=== PATIENT | male | born 1990 | race Caucasian/White ===

== ENCOUNTER 2021-04-06 11:21 | Emergency (ER) | payer OTHER ==
[2021-04-06 12:10] LABS: BASO % 0.2 % (0.0-1.0); EOS # 0.1 10*3/uL (0.0-0.4); EOS % 0.6 % (1.0-4.0); HEMATOCRIT 45.4 % (42.0-52.0); LYMPH # 1.9 10*3/uL (1.3-4.4); LYMPH % 15.6 % (27.0-41.0); MEAN CELL VOLUME 84.7 fl (80.0-94.0); MEAN CORPUSCULAR HGB 28.5 pg (27.0-31.0); MEAN CORPUSCULAR HGB CONC 33.7 g/dl (33.0-37.0); MEAN PLATELET VOLUME 9.2 fl (9.6-12.3); MONO % 7.9 % (3.0-9.0); NEUT # 9.3 10*3/uL (2.3-7.9); NEUT % 75.3 % (47.0-73.0); PLATELET COUNT AUTOMATED 290 10*3/uL (130-400); RED BLOOD COUNT 5.36 10*6/uL (4.50-5.90); WHITE BLOOD COUNT 12.3 10*3/uL (4.8-10.8)
[2021-04-06 12:26] LABS: ALBUMIN 3.9 gm/dl (3.1-4.5); ALKALINE PHOSPHATASE 83 U/L (45-117); BUN 12 mg/dl (7-24); CHLORIDE 108 mmol/L (98-107); CREATININE 0.93 mg/dL (0.70-1.30); LIPASE 85 U/L (73-393); POTASSIUM 3.6 mmol/L (3.5-5.1); SGOT/AST 15 IU/L (3-35); SGPT/ALT 29 U/L (12-78); SODIUM 138 mmol/L (136-145); TOTAL PROTEIN 8.1 gm/dL (6.4-8.2)
[2021-04-06 14:18] LABS: BILIRUBIN Negative (Negative); BLOOD Negative (Negative); CLARITY Clear (Clear); COLOR Yellow (Yellow); GLUCOSE Negative (Negative); KETONE Negative (Negative); LEUKO ESTERASE Negative (Negative); NITRITE Negative (Negative); SPECIFIC GRAVITY 1.015 (1.001-1.030); UROBILINOGEN 0.2 E.U./dl (0.0-1.0)
[2021-04-06 14:19] LABS: PH 8.5 (4.5-8.0)
[2021-04-06 14:31] LABS: URINE AMPHETAMINES < 1000 (1000ng/ml); URINE BARBITURATES < 200 (200ng/ml); URINE BENZODIAZEPINES < 200 (200ng/ml); URINE CANNABINOIDS (THC) > 50 (50ng/ml); URINE COCAINE < 300 (300ng/ml); URINE METHADONE < 300 (300ng/ml); URINE OPIATES < 300 (300ng/ml)
[2021-04-06 14:36] LABS: BACTERIA 1+
[2021-04-06 14:37] LABS: URINE PHENCYCLIDINE < 25 (25ng/ml)
== END 2021-04-06 14:44 | disposition home or self-care (01) ==
LOC: ED 11:21
PROVIDERS: Emergency Medicine
DX: R10.33 Periumbilical pain (principal); Z20.822 Contact with and (suspected) exposure to COVID-19; R11.2 Nausea with vomiting, unspecified; R10.13 Epigastric pain

== ENCOUNTER → 2021-05-16 | Outpatient (CLI) | payer OTHER | END | disposition home or self-care (01) | LOC: COVID19 16:45 | PROVIDERS: ATTEND Podiatrist Foot & Ankle Surgery | DX: U07.1 COVID-19 (principal) ==

== ENCOUNTER → 2021-05-28 | Outpatient (CLI) | payer OTHER | END | disposition home or self-care (01) | LOC: ORTHO 03:39 | PROVIDERS: ATTEND Orthopaedic Surgery | DX: M25.562 Pain in left knee (principal) ==

== ENCOUNTER → 2021-12-03 | Outpatient (CLI) | payer OTHER ==
[2021-12-03 09:28] LABS: BASO # 0.1 10*3/uL (0.0-0.1); BASO % 0.6 % (0.0-1.0); EOS # 0.1 10*3/uL (0.0-0.4); EOS % 1.4 % (1.0-4.0); HEMATOCRIT 45.8 % (42.0-52.0); LYMPH # 2.3 10*3/uL (1.3-4.4); LYMPH % 29.3 % (27.0-41.0); MEAN CELL VOLUME 87.2 fl (80.0-94.0); MEAN CORPUSCULAR HGB CONC 33.2 g/dl (33.0-37.0); MEAN PLATELET VOLUME 9.1 fl (9.6-12.3); MONO # 0.8 10*3/uL (0.1-1.0); MONO % 9.4 % (3.0-9.0); NEUT # 4.7 10*3/uL (2.3-7.9); NEUT % 58.9 % (47.0-73.0); PLATELET COUNT AUTOMATED 292 10*3/uL (130-400); RED BLOOD COUNT 5.25 10*6/uL (4.50-5.90); RED CELL DISTRI WIDTH 12.9 % (0-14.5); WHITE BLOOD COUNT 7.9 10*3/uL (4.8-10.8)
[2021-12-03 09:44] LABS: ALKALINE PHOSPHATASE 87 U/L (45-117); BUN 15 mg/dl (7-24); CHLORIDE 107 mmol/L (98-107); CHOLESTEROL 151 mg/dL (<200); CREATININE 0.96 mg/dL (0.70-1.30); LDL CHOLESTEROL 87 mg/dL (9-159); POTASSIUM 4.5 mmol/L (3.5-5.1); SGOT/AST 23 IU/L (3-35); SGPT/ALT 34 U/L (12-78); SODIUM 140 mmol/L (136-145); T3 UPTAKE 33 % (31-39); THYROXINE (T4) TOTAL 7.9 ug/dl (4.5-12.1); TOTAL PROTEIN 8.4 gm/dL (6.4-8.2); TRIGLYCERIDES 66 mg/dl (<150)
[2021-12-03 09:44] LABS: URINE AMPHETAMINES < 1000 (1000ng/ml); URINE BARBITURATES < 200 (200ng/ml); URINE BENZODIAZEPINES < 200 (200ng/ml); URINE CANNABINOIDS (THC) > 50 (50ng/ml); URINE COCAINE < 300 (300ng/ml); URINE METHADONE < 300 (300ng/ml); URINE OPIATES < 300 (300ng/ml)
[2021-12-03 09:45] LABS: URINE PHENCYCLIDINE < 25 (25ng/ml)
== END | disposition home or self-care (01) ==
LOC: LAB 09:06
PROVIDERS: ATTEND Registered Nurse Psychiatric/Mental Health
DX: F31.4 Bipolar disorder, current episode depressed, severe, without psychotic features (principal)

== ENCOUNTER → 2022-07-02 | Outpatient (CLI) | payer OTHER ==
[2022-07-02 08:43] LABS: BASO % 0.3 % (0.0-1.0); EOS # 0.1 10*3/uL (0.0-0.4); EOS % 0.9 % (1.0-4.0); HEMATOCRIT 44.2 % (42.0-52.0); LYMPH # 1.8 10*3/uL (1.3-4.4); LYMPH % 19.8 % (27.0-41.0); MEAN CORPUSCULAR HGB 28.9 pg (27.0-31.0); MEAN CORPUSCULAR HGB CONC 33.3 g/dl (33.0-37.0); MEAN PLATELET VOLUME 9.3 fl (9.6-12.3); MONO # 0.7 10*3/uL (0.1-1.0); NEUT # 6.5 10*3/uL (2.3-7.9); NEUT % 70.8 % (47.0-73.0); PLATELET COUNT AUTOMATED 295 10*3/uL (130-400); RED BLOOD COUNT 5.08 10*6/uL (4.50-5.90); RED CELL DISTRI WIDTH 12.4 % (0-14.5); WHITE BLOOD COUNT 9.2 10*3/uL (4.8-10.8)
[2022-07-02 09:01] LABS: ALKALINE PHOSPHATASE 84 U/L (46-116); BUN 10 mg/dl (9-23); CHLORIDE 103 mmol/L (98-107); CHOLESTEROL 121 mg/dL (<200); FREE T4 1.23 ng/dl (0.89-1.76); LDL CHOLESTEROL 73 mg/dL (9-159); POTASSIUM 4.1 mmol/L (3.4-5.1); SGPT/ALT 15 U/L (10-49); TOTAL PROTEIN 7.8 gm/dL (6.0-8.0); TRIGLYCERIDES 56 mg/dl (<150)
[2022-07-02 09:55] LABS: VITAMIN D, 25-HYDROXY 15.5 ng/mL (30-100)
== END | disposition home or self-care (01) ==
LOC: LAB 08:05
PROVIDERS: ATTEND Internal Medicine
DX: F32.1 Major depressive disorder, single episode, moderate (principal)

== ENCOUNTER 2022-09-11 17:35 | Emergency (ER) | payer OTHER ==
[~2022-09-11] VITALS: Ht 172.7 cm; Wt 81.6 kg
[2022-09-11 19:08] LABS: BASO % 0.2 % (0.0-1.0); EOS % 0.2 % (1.0-4.0); HEMATOCRIT 42.6 % (42.0-52.0); LYMPH # 1.3 10*3/uL (1.3-4.4); LYMPH % 14.3 % (27.0-41.0); MEAN CELL VOLUME 86.9 fl (80.0-94.0); MEAN CORPUSCULAR HGB 29.4 pg (27.0-31.0); MEAN CORPUSCULAR HGB CONC 33.8 g/dl (33.0-37.0); MEAN PLATELET VOLUME 8.9 fl (9.6-12.3); MONO # 0.6 10*3/uL (0.1-1.0); MONO % 6.1 % (3.0-9.0); NEUT # 7.2 10*3/uL (2.3-7.9); NEUT % 78.9 % (47.0-73.0); PLATELET COUNT AUTOMATED 264 10*3/uL (130-400); RED CELL DISTRI WIDTH 13.1 % (0-14.5); WHITE BLOOD COUNT 9.2 10*3/uL (4.8-10.8)
[2022-09-11 19:25] LABS: ALKALINE PHOSPHATASE 94 U/L (46-116); BUN 11 mg/dl (9-23); CHLORIDE 104 mmol/L (98-107); CPK 135 U/L (34-171); POTASSIUM 4.1 mmol/L (3.4-5.1); SGPT/ALT 14 U/L (10-49); TOTAL PROTEIN 7.6 gm/dL (6.0-8.0)
[2022-09-11 19:37] LABS: ETHYL ALCOHOL < 3.0 mg/dl (<3)
[2022-09-12 07:19] LABS: BILIRUBIN Negative (Negative); BLOOD Negative (Negative); CLARITY Clear (Clear); COLOR Yellow (Yellow); GLUCOSE Negative (Negative); KETONE 2+ (Negative); LEUKO ESTERASE Negative (Negative); NITRITE Negative (Negative); SPECIFIC GRAVITY 1.025 (1.001-1.030)
[2022-09-12 07:27] LABS: URINE AMPHETAMINES Positive (1000ng/ml); URINE BARBITURATES Negative (200ng/ml); URINE BENZODIAZEPINES Negative (200ng/ml); URINE CANNABINOIDS (THC) Positive (50ng/ml); URINE COCAINE Negative (300ng/ml); URINE METHADONE Negative (300ng/ml); URINE OPIATES Negative (300ng/ml); URINE PHENCYCLIDINE Negative (25ng/ml)
[2022-09-12 07:43] LABS: BACTERIA 2+; MUCOUS 2+
== END 2022-09-12 11:35 | disposition home or self-care (01) ==
LOC: ED 17:35
PROVIDERS: Physician Assistant
DX: F43.24 Adjustment disorder with disturbance of conduct (principal); Z20.822 Contact with and (suspected) exposure to COVID-19